=== PATIENT | female | born 1960 | race Caucasian/White ===

== ENCOUNTER → 2018-02-17 | Outpatient (CLI) | payer OTHER | LOC: M.MRI 02-09 17:30 | DX: R43.8 Other disturbances of smell and taste (principal); R43.2 Parageusia ==

== ENCOUNTER → 2019-03-14 | Outpatient (CLI) | payer OTHER | LOC: M.MRI 11:25 | DX: M75.101 Unspecified rotator cuff tear or rupture of right shoulder, not specified as traumatic (principal) ==